=== PATIENT | female | born 1955 | race Caucasian/White ===

== ENCOUNTER → 2016-09-19 | Outpatient (CLI) | payer OTHER ==
[2016-01-31 11:00] VITALS: BP 120/59
[~2016-09-19] MED LIST: CARV6.25 PO; CYAN250012 PO; FLUT16SP21 NS; LACT1CAP29 PO; MUPI22OI2 TP; PANT40TA5 PO; PROM25SU32 RC; RANI150T2 PO; SIMV20TA3 PO; SUCR1TAB PO; TRIA1CAP PO; VENL150C PO
--- NOTE | 2016-09-20 10:25 | RAD ---
EXAM: DIGITAL SCREEN BILAT W/CAD HISTORY: Routine Screening. COMPARISON: 06/03/2015 Standard mammographic views are obtained of the bilateral breasts. This study was interpreted with the benefit of Computerized Aided Detection (CAD). FINDINGS: The breast parenchyma shows scattered fibroglandular densities. Breast parenchyma level II. There is no definite new suspicious spiculated mass or worrisome new cluster of microcalcifications. There are some scattered benign-appearing calcifications again seen. Stable region of architectural distortion within the right lateral breast. IMPRESSION: No definite new suspicious mass. BI-RADS CATEGORY: 2 BENIGN FINDING RECOMMENDED FOLLOW-UP: 12M 12 MONTH FOLLOW-UP PQRS compliance statement: Patient information was entered into a reminder system with a target due date for the next mammogram. Mammography is a sensitive method for finding small breast cancers, but it does not detect them all and is not a substitute for careful clinical examination. A negative mammogram does not negate a clinically suspicious finding and should not result in delay in biopsying a clinically suspicious abnormality. "Our facility is accredited by the [employer] Mammography Program."
== END | disposition home or self-care (01) ==
LOC: MAMMO 13:46
PROVIDERS: ATTEND Specialist
DX: Z12.31 Encounter for screening mammogram for malignant neoplasm of breast (principal)
CPT/HCPCS: G0202; 77067

== ENCOUNTER → 2016-10-11 | Outpatient (CLI) | payer OTHER ==
[2016-01-31 11:00] VITALS: BP 120/59
--- NOTE | 2016-10-11 16:26 | RAD ---
CT scan of the head without contrast 10/11/2016 Clinical History: Dizziness for the last 2 years intermittently which is worsening over the last 2 months. Headaches. Technique: Unenhanced, contiguous, 5 mm axial sections were obtained through the head. One or more of the following individualized dose reduction techniques were utilized for this study: 1. Automated exposure control. 2. Adjustment of the mA and/or kV according to patient size. 3. Use of iterative reconstruction technique. Findings: No previous studies are available for comparison. There is mild generalized parenchymal atrophy. No acute parenchymal abnormality is seen. No extra-axial fluid collection is noted. No skull fracture is seen. Impression: No acute intracranial abnormality is seen.
== END | disposition home or self-care (01) ==
LOC: CT 15:54
PROVIDERS: ATTEND Specialist
DX: R51 Headache (principal); R42 Dizziness and giddiness
CPT/HCPCS: 70450